=== PATIENT | female | born 1970 | race Caucasian/White ===

== ENCOUNTER 2016-10-17 19:29 | Inpatient (IN) | payer OTHER ==
[~2016-10-17] VITALS: Ht 165.1 cm; Wt 72.8 kg
[~2016-10-17 19:29] MED LIST: CITA20 PO; CLON.1 PO; IBUP800T23 PO; TRAZ100 PO
[2016-10-17 19:43] VITALS: BP 129/98; PULSE 111; RESP 20; TEMP 99.5; O2SAT 98
[2016-10-17 20:00] LABS: GLUCOSE,URINE 100 mg/dL (NEG); KETONE, URINE 15 mg/dL (NEG); NITRITE,URINE NEG (NEG); PH, URINE 6.5 (5.0-8.5)
[2016-10-17 20:02] LABS: BLOOD, URINE MOD (NEG)
[2016-10-17 20:03] LABS: URINE COLOR AMBER (YELLW/STRAW)
[2016-10-17 20:05] LABS: COMMENT (UR) CULT NOT INDICATED; CULTURE IF INDICATED CULT NOT INDICATED; SQUAMOUS EPITHELIAL CELL URINE 0-5 /hpf (0-5); WBC, URINE 0-2 /hpf (0-5)
[2016-10-17 20:06] VITALS: RESP 16; O2SAT 97
[2016-10-17] MEDS ORDERED: CLON0.1T PO (20:12)
[2016-10-17] MEDS ORDERED: CELE40TA PO (20:12)
[2016-10-17] MEDS ORDERED: TRAZ150T75 PO (20:12)
[2016-10-17] MEDS ORDERED: SODIUM CHLORIDE 0.9% FLUSH 5 ML FLUSH IVF PRN ×2 (20:45→21:30)
--- NOTE | 2016-10-17 20:51 | PD ---
HPI Chief Complaint: GI Complaint Time Seen by Provider: 20:43 Travel History International Travel<30 days: No Contact w/Intl Traveler<30days: No Traveled to known affect area: No History of Present Illness HPI The patient is a 45-year-old female that has had nausea and vomiting for one week. She does feel dehydrated. She also has noted today some dysuria. Her coworkers have noted that she has a yellow hue to her sclera. She has noted dark urines. She denies any fever but her temperature is 99.5 here. She does complain of right upper quadrant pain. She denies any recent foreign travel. She has IV drug abuse history but this was many years ago and she has not engaged in IV drug abuse in the last 4 months. She denies being around anybody hepatitis. Specifically, she has no history of alcohol or Tylenol abuse/ overdose. She denies taking any foreign-originated herbal medications. PFSH Past Medical History Depression: Yes (MAJOR DEPRESSIVE DISORDER) Cerebrovascular Accident: Yes Diminished Hearing: No Reproductive: Yes (PCOS) Tetanus Vaccination: > 5 Years Influenza Vaccination: No ?: Not Past Surgical History Genitourinary Surgery: Yes ("Bladder tacking") Hysterectomy: Yes Social History Alcohol Use: Yes (OCC) Tobacco Use: Yes (1 PPD) Substance Use: No Allergies-Medications (Allergen,Severity, Reaction): Coded Allergies: Tetracycline (Verified Allergy, Severe, Tongue swelling, 10/17/16) Topamax (Verified Adverse Reaction, Unknown, "Skin crawling", 10/17/16) Reported Meds & Prescriptions Reported Meds & Active Scripts Active Reported Celexa (Citalopram Hydrobromide) 40 Mg Tab 40 Mg PO DAILY Clonidine (Clonidine HCl) 0.1 Mg Tab 0.1 Mg PO HS Trazodone (Trazodone HCl) 150 Mg Tab 150 Mg PO HS Review of Systems Except as stated in HPI: all other systems reviewed are Neg Physical Exam Narrative GENERAL: The patient is alert, oriented 3 in moderate apparent distress with her right upper quadrant pain. Her vital signs show temperature 99.5, blood pressure of 129/98, heart rate of 111 but otherwise normal. SKIN: Warm and dry. HEAD: Atraumatic. Normocephalic. EYES: Pupils equal and round. There is bilateral scleral icterus. No injection or drainage. ENT: No nasal bleeding or discharge. Mucous membranes pink and moist. NECK: Trachea midline. No JVD. CARDIOVASCULAR: Regular rate and rhythm. No murmur appreciated. RESPIRATORY: No accessory muscle use. Clear to auscultation. Breath sounds equal bilaterally. GASTROINTESTINAL: Abdomen soft, with tenderness in the right upper quadrant to direct palpation, nondistended. Hepatic and splenic margins not palpable. Crain's sign is positive. No guarding or rebound is present. MUSCULOSKELETAL: No obvious deformities. No clubbing. No cyanosis. No edema. NEUROLOGICAL: Awake and alert. No obvious cranial nerve deficits. Motor grossly within normal limits. Normal speech. PSYCHIATRIC: Appropriate mood and affect; insight and judgment normal. Data Data Last Documented VS Vital Signs Date Time Temp Pulse Resp B/P Pulse Ox O2 Delivery O2 Flow Rate FiO2 10/17/16 22:53 18 10/17/16 22:25 98.6 86 117/63 96 Room Air Orders Urinalysis - C+S If Indicated (10/17/16 19:48) Complete Blood Count With Diff (10/17/16 20:43) Comprehensive Metabolic Panel (10/17/16 20:43) Lipase (10/17/16 20:43) Prothrombin Time / Inr (Pt) (10/17/16 20:43) Act Partial Throm Time (Ptt) (10/17/16 20:43) Iv Access Insert/Monitor (10/17/16 20:43) Ecg Monitoring (10/17/16 20:43) Oximetry (10/17/16 20:43) Sodium Chloride 0.9% Flush (Ns Flush) (10/17/16 20:45) Us Abdomen Gallbladder (10/17/16 ) Sodium Chloride 0.9% Flush (Ns Flush) (10/17/16 21:30) Ondansetron Inj (Zofran Inj) (10/17/16 22:15) Hydromorphone Pf Inj (Dilaudid Pf Inj) (10/17/16 22:15) Sodium Chlor 0.9% 1000 Ml Inj (Ns 1000 M (10/17/16 22:15) Hepatitis Profile (10/17/16 23:09) Labs Laboratory Tests Test 10/17/16 10/17/16 19:50 20:45 Urine Color SAUL Urine Turbidity CLEAR Urine pH 6.5 Urine Specific Black 1.025 Urine Protein 30 mg/dL Urine Glucose (UA) 100 mg/dL Urine Ketones 15 mg/dL Urine Occult Blood MOD Urine Nitrite NEG Urine Bilirubin LARGE Urine Leukocyte Esterase NEG Urine RBC 25-49 /hpf Urine WBC 0-2 /hpf Urine Squamous Epithelial 0-5 /hpf Cells Urine Bacteria NONE /hpf Microscopic Urinalysis Comment CULT NOT INDICATED White Blood Count 10.9 TH/MM3 Red Blood Count 5.37 MIL/MM3 Hemoglobin 14.2 GM/DL Hematocrit 42.8 % Mean Corpuscular Volume 79.8 FL Mean Corpuscular Hemoglobin 26.4 PG Mean Corpuscular Hemoglobin 33.1 % Concent Red Cell Distribution Width 15.9 % Platelet Count 178 TH/MM3 Mean Platelet Volume 9.5 FL Neutrophils (%) (Auto) 76.2 % Lymphocytes (%) (Auto) 11.4 % Monocytes (%) (Auto) 9.7 % Eosinophils (%) (Auto) 0.6 % Basophils (%) (Auto) 2.1 % Neutrophils # (Auto) 8.3 TH/MM3 Lymphocytes # (Auto) 1.2 TH/MM3 Monocytes # (Auto) 1.1 TH/MM3 Eosinophils # (Auto) 0.1 TH/MM3 Basophils # (Auto) 0.2 TH/MM3 CBC Comment DIFF FINAL Differential Comment Prothrombin Time 12.7 SEC Prothromb Time International 1.1 RATIO Ratio Activated Partial 31.6 SEC Thromboplast Time Sodium Level 138 MEQ/L Potassium Level 3.6 MEQ/L Chloride Level 103 MEQ/L Carbon Dioxide Level 26.2 MEQ/L Anion Gap 9 MEQ/L Blood Urea Nitrogen 6 MG/DL Creatinine 0.73 MG/DL Estimat Glomerular Filtration 86 ML/MIN Rate Random Glucose 105 MG/DL Calcium Level 8.4 MG/DL Total Bilirubin 9.2 MG/DL Aspartate Amino Transf 849 U/L (AST/SGOT) Alanine Aminotransferase 1400 U/L (ALT/SGPT) Alkaline Phosphatase 200 U/L Total Protein 7.5 GM/DL Albumin 3.3 GM/DL Lipase 77 U/L [facility] Medical Decision Making Medical Screen Exam Complete: Yes Emergency Medical Condition: Yes Medical Record Reviewed: Yes Interpretation(s) The urine shows saul color, clear turbidity, specific gravity 1.025, 30 protein , 100 glucose, 15 ketones, moderate blood with large bilirubin and 25-49 red cells and is otherwise normal and culture is not indicated. Differential Diagnosis Obstructive jaundice, hepatitis, electrolyte disorder, anemiahemolytic, urinary tract infection, jaundice from alcohol, Tylenol or other liver toxins, dehydration Narrative Course The patient probably has viral hepatitis. At this time her reason for her liver enzyme elevation is unknown. The patient is dehydrated and has trouble with by mouth intake at this time. Plan: I discussed the patient with Dr. Banda and Dr. Watts, the patient will be admitted to Dr. Banda with consultation to Dr. Watts. She will be hydrated. Physician Communication Physician Communication I discussed the patient with Drs. Banda and Mac. Diagnosis Primary Impression: Hepatitis Additional Impression: Dehydration, moderate Admitting Information Admitting Physician Requests: Admit Triston Varags MD Oct 17, 2016 20:51
[2016-10-17 21:05] LABS: AUTOMATED NEUTROPHIL # 8.3 TH/MM3 (1.8-7.7); BASOPHIL # 0.2 TH/MM3 (0-0.2); BASOPHIL % 2.1 % (0.0-2.0); EOSINOPHIL # 0.1 TH/MM3 (0-0.4); EOSINOPHIL % 0.6 % (0.0-4.0); HEMATOCRIT 42.8 % (35.0-46.0); LYMPH % 11.4 % (9.0-44.0); LYMPHOCYTE # 1.2 TH/MM3 (1.0-4.8); MEAN CELL VOLUME 79.8 FL (80.0-100.0); MEAN CORPUSCULAR HEMOGLOBIN 26.4 PG (27.0-34.0); MEAN CORPUSCULAR HGB CONC 33.1 % (32.0-36.0); MONO % 9.7 % (0.0-8.0); NEUT % 76.2 % (16.0-70.0); PLATELET COUNT 178 TH/MM3 (150-450); RED BLOOD COUNT 5.37 MIL/MM3 (4.00-5.30); RED CELL DISTRIBUTION WIDTH 15.9 % (11.6-17.2); WHITE BLOOD COUNT 10.9 TH/MM3 (4.0-11.0)
[2016-10-17 21:14] LABS: CHLORIDE 103 MEQ/L (98-107); POTASSIUM 3.6 MEQ/L (3.5-5.1); SODIUM (NA) 138 MEQ/L (136-145)
[2016-10-17 21:18] LABS: ANION GAP 9 MEQ/L (5-15); BICARBONATE 26.2 MEQ/L (21.0-32.0); BLOOD UREA NITROGEN 6 MG/DL (7-18); HEMO FLAGS DIFF FINAL
[2016-10-17 21:19] LABS: APTT (PATIENT) 31.6 SEC (24.3-30.1); INTERNATIONAL NORMALIZED RATIO 1.1 RATIO; PROTHROMBIN TIME - PATIENT 12.7 SEC (9.8-11.6)
[2016-10-17 21:21] LABS: AST (GOT) 849 U/L (15-37); GLOMERULAR FILTRATION RATE 86 ML/MIN (>89)
[2016-10-17 21:22] LABS: TOTAL BILIRUBIN ADULT 9.2 MG/DL (0.2-1.0)
[2016-10-17 21:23] LABS: ALKALINE PHOSPHATASE 200 U/L (45-117)
[2016-10-17 21:28] LABS: ALT (GPT) 1400 U/L (10-53)
[2016-10-17] MEDS ORDERED: ONDANSETRON HCL 4 MG/2 ML VIAL IV ONE (22:15)
[2016-10-17] MEDS ORDERED: HYDROmorphone HCL PF 1 MG/ML VIAL IVP ONE (22:15)
[2016-10-17] MEDS: SODIUM CHLOR 0.9% 1000 ML INJ 1,000 ML IV SCH ×2 (22:22→23:35)
[2016-10-17 22:25] VITALS: BP 117/63; PULSE 86; RESP 16; TEMP 98.6; O2SAT 96
--- NOTE | 2016-10-17 23:31 | RADHPO ---
EXAM DATE/TIME: 10/18/2016 03:47 [facility] COMPARISON: No previous studies available for comparison. INDICATIONS : Right upper quadrant pain. MEDICAL HISTORY : Hypertension. Cerebrovascular accident. Polycystic ovarian syndrome. Depression. SURGICAL HISTORY : Hysterectomy. Bladder tacking. Right knee surgery. Neck surgery with hardware. ENCOUNTER: Initial ACUITY: 3 days PAIN SCORE: 3/10 LOCATION: Right upper quadrant MEASUREMENTS: LIVER: 17.8 cm length COMMON DUCT: 5 mm RIGHT KIDNEY: 12.0 x 5.4 x 4.7 cm FINDINGS: LIVER: Normal echotexture without focal lesion or ductal dilatation. Hepatopedal flow is seen in the portal vein. COMMON DUCT: No intraluminal mass or stone visualized. GALLBLADDER: Contains no stones, demonstrates no wall thickening or pericholecystic fluid. PANCREAS: The visualized portions are within normal limits. RIGHT KIDNEY: No evidence of hydronephrosis, stone, or mass. CONCLUSION: 1. No gallstone seen. 2. Hepatomegaly without focal lesion. Enzo Espitia MD on October 17, 2016 at 23:28 Board Certified Radiologist. This report was verified electronically.
[2016-10-17 23:34] VITALS: BP 120/74; PULSE 88; RESP 18; O2SAT 96
[2016-10-18] VITALS (11 sets, daily range): BP systolic 102–126; BP diastolic 55–77; PULSE 60–84; RESP 12–19; TEMP 97.7–98.7; O2SAT 95–98
[2016-10-18] MEDS ORDERED: SODIUM CHLORIDE 0.9% FLUSH 5 ML FLUSH FLUSH PRN
[2016-10-18] MEDS: NS + KCL 20 MEQ INJ 1,000 ML IV SCH ×3 (01:11→20:19)
[2016-10-18] MEDS ORDERED: LORazepam 2 MG/ML VIAL IV ONE (01:15)
--- NOTE | 2016-10-18 03:04 | RADHPO ---
EXAM DATE/TIME: 10/18/2016 01:45 [facility] COMPARISON: US ABDOMEN - GALLBLADDER, October 18, 2016, 3:47. INDICATIONS : Abdominal pain. MEDICAL HISTORY : None. SURGICAL HISTORY : Fusion, cervical. Hysterectomy. Inguinal hernia repair. Bladder neck suspension surgery ENCOUNTER: Initial ACUITY: 1 day PAIN SCORE: 4/10 LOCATION: upper quadrant of abdomen TECHNIQUE: Multiplanar, multisequence magnetic resonance imaging of the abdomen was performed. High-resolution 3D dataset was utilized to reconstruct maximum-intensity projection (MIP) images. FINDINGS: INTRAHEPATIC BILE DUCTS: Within normal limits. No significant anatomical variant is present. EXTRAHEPATIC BILE DUCTS: The common bile duct measures 4 mm No stone or filling defect is identified. GALLBLADDER: No stones, wall thickening, or pericholecystic fluid. LIVER: There is a focal oval lesion in the posterior right lobe measuring 2.6 cm in oblique dimension charac terized by T1 and T2 prolongation. This cannot be further characterized on noncontrast study. PANCREAS: The main pancreatic duct is normal in size. There is no significant anatomical variant. Signal inte nsity is within normal limits. No mass is visualized on this non-contrast exam. OTHER: The remaining visualized structures demonstrate no acute abnormality on this non-contrast exam. CONCLUSION: 1. Normal dimension to the intra-and extrahepatic biliary system. No filling defects seen. 2. No filling defects the gallbladder. 3. 2.6 cm oval smooth margin lesion in the posterior upper right lobe of the liver near the perifery. This is incompletely evaluated on MRCP; differential considerations include hemangioma and cyst. Enzo Espitia MD on October 18, 2016 at 2:56 Board Certified Radiologist. This report was verified electronically.
[2016-10-18] MEDS: ONDANSETRON HCL 4 MG/2 ML VIAL IV PRN ×2 (03:29→22:38)
[2016-10-18] MEDS: MORPHINE SULFATE 4 MG/ML INJ IV PUSH PRN ×6 (03:35→22:38)
[2016-10-18 06:27] LABS: CHLORIDE 109 MEQ/L (98-107); POTASSIUM 3.6 MEQ/L (3.5-5.1); SODIUM (NA) 144 MEQ/L (136-145)
[2016-10-18 06:45] LABS: ALKALINE PHOSPHATASE 161 U/L (45-117); ALT (GPT) 1092 U/L (10-53); ANION GAP 7 MEQ/L (5-15); AST (GOT) 739 U/L (15-37); BICARBONATE 27.8 MEQ/L (21.0-32.0); BLOOD UREA NITROGEN 6 MG/DL (7-18); GLOMERULAR FILTRATION RATE 102 ML/MIN (>89); TOTAL BILIRUBIN ADULT 8.2 MG/DL (0.2-1.0)
[2016-10-18] MEDS: SODIUM CHLORIDE 0.9% FLUSH 5 ML FLUSH FLUSH SCH ×2 (08:09→20:20)
--- NOTE | 2016-10-18 08:33 | HHI.HP ---
HPI Service [facility] Hospitalists Primary Care Physician Dionna Estrada M.D. Admission Diagnosis hepatitis/dehydration Chief Complaint: n/v, abd pain Travel History International Travel<30 Days: No Contact w/Intl Traveler <30 Da: No Traveled to Known Affected Are: No History of Present Illness Pleasant 45-year-old female who is a smoker and has a distant history of IM drug abuse reports to the ER last evening for persistent abdominal pain and nausea. Her GI issues had been ongoing for approximately 1 week and she initially had vomiting as well but has not had vomiting in the last few days. She denies any recent foreign travel or Tylenol use. She denies drinking alcohol. Denies any illicit drugs except for occasional marijuana which she has not used in quite some time as well. He notes that 3 days ago she did take some pain in the liver detoxification Tea, but denies new medications or over- the-counter remedies otherwise. Does admit that she previously had problem with addiction to Dilaudid, but says she never used IV only IM. Her last use of this was reportedly in 2008. Patient has never had any liver problems before. ER evaluation noted for slightly jaundiced patient with significantly elevated liver enzymes and essentially negative right upper quadrant ultrasound. MRCP was also performed and demonstrated no obvious blockage. There was a 2.6 cm mass in the liver which was possible hemangioma or cyst but was incompletely evaluated on this study. Vision is still having some nausea this morning. Her abdominal pain is controlled with the IV morphine. Review of Systems Constitutional: COMPLAINS OF: Fatigue, Change in appetite, DENIES: Diaphoretic episodes, Fever, Weight gain, Weight loss, Chills, Dizziness, Night Sweats Eyes: DENIES: Blurred vision, Diplopia, Eye inflammation, Eye pain, Vision loss , Photosensitivity, Double Vision Ears, nose, mouth, throat: DENIES: Tinnitus, Hearing loss, Vertigo, Nasal discharge, Oral lesions, Throat pain, Hoarseness, Ear Pain, Running Nose, Epistaxis, Sinus Pain, Toothache, Odynophagia Respiratory: DENIES: Apneas, Cough, Snoring, Wheezing, Hemoptysis, Sputum production, Shortness of breath Cardiovascular: DENIES: Chest pain, Palpitations, Syncope, Dyspnea on Exertion , PND, Lower Extremity Edema, Orthopnea, Claudication Gastrointestinal: COMPLAINS OF: Abdominal pain, GERD, Nausea, Reflux, Vomiting , Anorexia Musculoskeletal: COMPLAINS OF: Joint pain, DENIES: Muscle aches, Stiffness, Joint Swelling, Back pain, Neck pain Integumentary: COMPLAINS OF: Abnormal pigmentation, DENIES: Pruritus, Rash, Nail changes, Breast masses, Breast skin changes, Nipple discharge Neurologic: DENIES: Abnormal gait, Headache, Localized weakness, Paresthesias, Seizures, Speech Problems, Tremor, Poor Balance Psychiatric: COMPLAINS OF: Anxiety Past Family Social History Past Medical History Depression Anxiety PCOD in the past Past Surgical History Cervical spine surgery Inguinal hernia repair at age 54 years old Bladder suspension Hysterectomy at age 34 for PCOD and to decrease her cancer risk. 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 She occasionally has smoked marijuana since that time. Physical Exam Vital Signs Vital Signs Date Time Temp Pulse Resp B/P Pulse Ox O2 Delivery O2 Flow Rate FiO2 10/18/16 04:00 62 18 107/65 97 10/18/16 03:23 78 18 96 10/18/16 03:15 98.4 68 17 112/77 98 10/18/16 03:00 60 10/18/16 02:47 82 18 122/72 96 Room Air 10/18/16 01:00 84 18 126/72 96 Room Air 10/17/16 23:34 88 18 120/74 96 Room Air 10/17/16 22:53 18 10/17/16 22:25 98.6 86 16 117/63 96 Room Air 10/17/16 20:06 16 97 Room Air 10/17/16 19:43 99.5 111 20 129/98 98 Physical Exam GENERAL: This is a well-nourished, well-developed patient, in mild distress or guarding abdominal pain. SKIN: No rashes, ecchymoses or lesions. Cool and dry. Slight jaundice. HEAD: Atraumatic. Normocephalic. No temporal or scalp tenderness. EYES: Pupils equal round and reactive. Extraocular motions intact. Mild scleral icterus. No injection or drainage. ENT: Nose without bleeding, purulent drainage or septal hematoma. Airway patent. Poor dentition. NECK: Trachea midline. No JVD or lymphadenopathy. Supple, nontender, no meningeal signs. CARDIOVASCULAR: Regular rate and rhythm without murmurs, gallops, or rubs. RESPIRATORY: Clear to auscultation. Breath sounds equal bilaterally. No wheezes , rales, or rhonchi. GASTROINTESTINAL: Abdomen soft, nondistended. Mild tenderness to palpation in right upper quadrant and epigastrium. No hepato-splenomegaly, or palpable masses. Positive Crain sign. Bowel sounds normoactive. No bruit. MUSCULOSKELETAL: Extremities without clubbing, cyanosis, or edema. No joint tenderness, effusion, or edema noted. No calf tenderness. NEUROLOGICAL: Awake and alert. Cranial nerves II through XII intact. Motor and sensory grossly within normal limits. Five out of 5 muscle strength in all muscle groups. Normal speech. Laboratory Laboratory Tests Test 10/17/16 10/17/16 10/18/16 19:50 20:45 05:55 Urine Color COLIN Urine Turbidity CLEAR Urine pH 6.5 Urine Specific Tracy 1.025 Urine Protein 30 Urine Glucose (UA) 100 Urine Ketones 15 Urine Occult Blood MOD Urine Nitrite NEG Urine Bilirubin LARGE Urine Leukocyte Esterase NEG Urine RBC 25-49 Urine WBC 0-2 Urine Squamous Epithelial 0-5 Cells Urine Bacteria NONE Microscopic Urinalysis Comment CULT NOT INDICATED White Blood Count 10.9 Red Blood Count 5.37 Hemoglobin 14.2 Hematocrit 42.8 Mean Corpuscular Volume 79.8 Mean Corpuscular Hemoglobin 26.4 Mean Corpuscular Hemoglobin 33.1 Concent Red Cell Distribution Width 15.9 Platelet Count 178 Mean Platelet Volume 9.5 Neutrophils (%) (Auto) 76.2 Lymphocytes (%) (Auto) 11.4 Monocytes (%) (Auto) 9.7 Eosinophils (%) (Auto) 0.6 Basophils (%) (Auto) 2.1 Neutrophils # (Auto) 8.3 Lymphocytes # (Auto) 1.2 Monocytes # (Auto) 1.1 Eosinophils # (Auto) 0.1 Basophils # (Auto) 0.2 CBC Comment DIFF FINAL Differential Comment Prothrombin Time 12.7 Prothromb Time International 1.1 Ratio Activated Partial 31.6 Thromboplast Time Sodium Level 138 144 Potassium Level 3.6 3.6 Chloride Level 103 109 Carbon Dioxide Level 26.2 27.8 Anion Gap 9 7 Blood Urea Nitrogen 6 6 Creatinine 0.73 0.63 Estimat Glomerular Filtration 86 102 Rate Random Glucose 105 75 Calcium Level 8.4 7.6 Total Bilirubin 9.2 8.2 Aspartate Amino Transf 849 739 (AST/SGOT) Alanine Aminotransferase 1400 1092 (ALT/SGPT) Alkaline Phosphatase 200 161 Total Protein 7.5 6.1 Albumin 3.3 2.7 Lipase 77 Result Diagram: 10/17/16204410/18/16 0555 Imaging Last 72 hours Impressions Cholangiopancreatography MRI 10/18/16 0000 Signed Impressions: Service Date/Time: Tuesday, October 18, 2016 01:45 - CONCLUSION: 1. Normal dimension to the intra-and extrahepatic biliary system. No filling defects seen. 2. No filling defects the gallbladder. 3. 2.6 cm oval smooth margin lesion in the posterior upper right lobe of the liver near the perifery. This is incompletely evaluated on MRCP; differential considerations include hemangioma and cyst. Enzo Espitia MD Gall Bladder Ultrasound 10/17/16 0000 Signed Impressions: Service Date/Time: Tuesday, October 18, 2016 03:47 - CONCLUSION: 1. No gallstone seen. 2. Hepatomegaly without focal lesion. Enzo Espitia MD Assessment and Plan Problem List: (1) Transaminitis Status: Acute Plan: Questionable etiology. Possible viral hepatitis. We'll have GI see the patient. It is noted that she took a liver detoxification agent possibly 3 days ago to see if it would help her symptoms. Enzymes improved somewhat this morning. We'll be cautious with opiate use given her history of addiction, but we'll need to control her pain. (2) Depression Status: Chronic Plan: Continue Celexa. (3) Anxiety Status: Chronic Plan: Continue Celexa. (4) Tobacco use Status: Chronic Plan: Probably discouraged. Provide NicoDerm. Code Status Full Discussed Condition With Patient Physician Certification 2 Midnight Certification Type: Admission for Inpatient Services Order for Inpatient Services The services are ordered in accordance with Medicare regulations or non- Medicare payer requirements, as applicable. In the case of services not specified as inpatient-only, they are appropriately provided as inpatient services in accordance with the 2-midnight benchmark. Estimated LOS (days): 3 days is the estimated time the patient will need to remain in the hospital, assuming treatment plan goals are met and no additional complications. Post-Hospital Plan: Home Problem Qualifiers (1) Depression: Sarbjit Banda PhD MD Oct 18, 2016 08:33
[2016-10-18] MEDS ORDERED: PNEUMOCOCCAL POLYVALENT INJ 25 MCG/0.5 ML SYR IM ONE (09:00)
[2016-10-18] MEDS ORDERED: INFLUENZA VIRUS VACCINE (QUADRIVALENT) 0.5 ML SYR IM ONE (09:00)
[2016-10-18] MEDS: CITALOPRAM HYDROBROMIDE 40 MG TAB PO SCH (09:31)
[2016-10-18] MEDS: NICOTINE 21 MG/24 HR PATCH TD SCH (09:32)
[2016-10-18 11:19] LABS: BETA HCG QUANT 2 MIU/ML (0-5)
[2016-10-18 11:36] LABS: AMPHETAMINE, URINE NEG (NEG); COCAINE, URINE NEG (NEG)
[2016-10-18 11:40] LABS: BARBITURATES, URINE NEG (NEG)
[2016-10-18 11:47] LABS: TRANSFERRIN IRON PROFILE 222 MG/DL (200-360)
[2016-10-18 12:27] LABS: ACETAMINOPHEN LESS THAN 2.0 MCG/ML (10.0-30.0)
--- NOTE | 2016-10-18 13:48 | MB ---
cc: KRIS DHILLON M.D., [place] DATE OF CONSULTATION: 10/18/2016. REASON FOR CONSULTATION: Nausea, vomiting, right upper quadrant pain, elevated liver function tests, jaundice. PATIENT OF: Dr. Sarbjit Banda. HISTORY OF PRESENT ILLNESS: Ms. Montes is a 45-year-old lady who says for a couple of days she was noticing some yellowness in her eyes for which she was recommended an herbal tea for liver detoxification from her friends. She says she tried the tea about three days ago. She basically presented when she started having nausea, vomiting and abdominal pain. She denies any problems with her liver previously. Denies any GI-related symptoms in the past. She does work in a [email or web address] and states she comes in contact with a lot of travellers. REVIEW OF SYSTEMS: Currently she is icteric but no abdominal pain. No nausea or vomiting reported. PAST MEDICAL HISTORY: 1. Depression. 2. Anxiety disorder. 3. PCOD in the past. PAST SURGICAL HISTORY: 1. Spinal surgery. 2. Bladder suspension. 3. Hysterectomy. MEDICATIONS ON ADMISSION: 1. Celexa. 2. Trazodone. 3. Clonidine. ALLERGIES: 1. TETRACYCLINE. 2. TOPAMAX. FAMILY HISTORY: Breast cancer. There is family history of gallbladder disease. SOCIAL HISTORY: Lives alone. Denies alcohol or any illicit drug use recently. She is a smoker. Previous history of drug addiction reportedly clean since 2008. PHYSICAL EXAMINATION: GENERAL: The physical exam reveals a well-nourished lady in no apparent distress. VITAL SIGNS: Stable. HEAD AND NECK: Anicteric sclerae. CHEST: Bilateral air entry. ABDOMEN: Abdomen is soft, nontender. No hepatosplenomegaly. Bowel sounds are present. 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 RECTAL: Deferred at this time. LABORATORY STUDIES: Her labs reveal total bilirubin 8.2, alkaline phosphatase 161, ALT 1092, ALT 79. INR 1.1. Serologies and immunologies are pending. IMPRESSION: Elevated liver function test with nausea and vomiting. RECOMMENDATIONS: 1. Would recommend drug screen. 2. Would recommend alcohol level. 3. Would recommend acetaminophen levels. 4. Ultrasound and MRCP are negative for stones but the patient is convinced she has gallbladder disease. Given her symptoms, I am recommending a HIDA scan. 5. Serologies and liver workup are awaited. 6. If all this normal, would recommend an endoscopy. 7. Continue to monitor liver function tests. These seem to be improving. Thank you for this referral. MD FANNY Juarez/DARÍO /10:49 AM /1:42 PM
[2016-10-18] MEDS: cloNIDine HCL 0.1 MG TAB PO SCH (20:19)
[2016-10-18] MEDS: traZODone HCL 50 MG TAB PO SCH (20:20)
[2016-10-19] VITALS (8 sets, daily range): BP systolic 92–117; BP diastolic 58–74; PULSE 64–74; RESP 12–21; TEMP 97.2–97.9; O2SAT 95–96
[2016-10-19] MEDS: MORPHINE SULFATE 4 MG/ML INJ IV PUSH PRN ×2 (03:01→16:54)
[2016-10-19 06:02] LABS: CHLORIDE 111 MEQ/L (98-107); POTASSIUM 4.1 MEQ/L (3.5-5.1); SODIUM (NA) 144 MEQ/L (136-145)
[2016-10-19 06:07] LABS: ANION GAP 8 MEQ/L (5-15); BICARBONATE 24.8 MEQ/L (21.0-32.0); BLOOD UREA NITROGEN 11 MG/DL (7-18)
[2016-10-19 06:10] LABS: AST (GOT) 826 U/L (15-37); GLOMERULAR FILTRATION RATE 104 ML/MIN (>89)
[2016-10-19 06:13] LABS: ALKALINE PHOSPHATASE 164 U/L (45-117)
[2016-10-19 06:18] LABS: ALT (GPT) 1065 U/L (10-53)
--- NOTE | 2016-10-19 07:34 | HHI.PR ---
Subjective Remarks Still with some nausea and epigastric pain. Overall feels about the same. I reviewed upcoming HIDA scan and most recent lab results with the patient. Objective Vitals Vital Signs Date Time Temp Pulse Resp B/P Pulse Ox O2 Delivery O2 Flow Rate FiO2 10/19/16 06:47 97.7 68 16 105/65 95 10/19/16 04:00 97.6 66 12 103/62 95 10/19/16 00:39 97.9 64 21 106/58 95 10/18/16 20:00 70 10/18/16 19:49 98.2 70 18 125/76 95 10/18/16 16:20 97.7 77 13 126/74 95 10/18/16 12:51 98.7 102/55 10/18/16 12:00 70 12 97 10/18/16 08:00 78 19 97 10/18/16 08:00 72 10/18/16 08:00 98.1 64 16 110/70 10/18/16 10/18/16 10/19/16 15:00 23:00 07:00 Intake Total 820 ml 778 ml 737 ml Output Total 0 ml 0 ml Balance 820 ml 778 ml 737 ml IV Total 820 ml 778 ml 737 ml Output Stool Total 0 ml 0 ml # Voids 2 3 3 # Bowel Movements 0 GENERAL: Awake and alert, no acute distress, cooperative with exam. SKIN: Warm and dry. Minimal jaundice upper torso. HEAD: Normocephalic. EYES: Minimal scleral icterus. No injection or drainage. NECK: Supple, trachea midline. No JVD or lymphadenopathy. CARDIOVASCULAR: Regular rate and rhythm without murmurs, gallops, or rubs. RESPIRATORY: Breath sounds equal bilaterally. No accessory muscle use. GASTROINTESTINAL: Abdomen soft, nondistended. Slight tenderness to palpation in the epigastrium and right upper quadrant. No rebound. Decreased voluntary guarding compared to yesterday. Bowel sounds normal. MUSCULOSKELETAL: No cyanosis, or edema. BACK: No CVA tenderness. Result Diagram: 10/17/16204410/19/16 0523 Imaging Last 72 hours Impressions Cholangiopancreatography MRI 10/18/16 0000 Signed Impressions: Service Date/Time: Tuesday, October 18, 2016 01:45 - CONCLUSION: 1. Normal dimension to the intra-and extrahepatic biliary system. No filling defects seen. 2. No filling defects the gallbladder. 3. 2.6 cm oval smooth margin lesion in the posterior upper right lobe of the liver near the perifery. This is incompletely evaluated on MRCP; differential considerations include hemangioma and cyst. Enzo Espitia MD Gall Bladder Ultrasound 10/17/16 0000 Signed Impressions: Service Date/Time: Tuesday, October 18, 2016 03:47 - CONCLUSION: 1. No gallstone seen. 2. Hepatomegaly without focal lesion. Enzo Espitia MD Urinary Catheter: No Vascular Central Line Catheter: No A/P Problem List: (1) Transaminitis Status: Acute Plan: Questionable etiology. Possible viral versus chemical hepatitis. We'll have GI see the patient. It is noted that she took a liver detoxification agent possibly 3 days ago to see if it would help her symptoms. We'll be cautious with opiate use given her history of addiction, but we'll need to control her pain. I had a discussion with her regarding opiate use this morning. (2) Depression Status: Chronic Plan: Continue Celexa. (3) Anxiety Status: Chronic Plan: Continue Celexa. (4) Tobacco use Status: Chronic Plan: Smoking discouraged. Provide NicoDerm. Discharge Planning Hopefully discharge in 1-2 days Problem Qualifiers (1) Depression: Sarbjit Banda PhD MD Oct 19, 2016 07:34
[2016-10-19] MEDS ORDERED: KETOROLAC TROMETHAMINE 30 MG/ML (IVP) VIAL IV PUSH ONE (07:45)
[2016-10-19] MEDS: NS + KCL 20 MEQ INJ 1,000 ML IV SCH ×3 (08:17→20:07)
[2016-10-19] MEDS: NICOTINE 21 MG/24 HR PATCH TD SCH (08:18)
[2016-10-19] MEDS: CITALOPRAM HYDROBROMIDE 40 MG TAB PO SCH (08:18)
[2016-10-19] MEDS: SODIUM CHLORIDE 0.9% FLUSH 5 ML FLUSH FLUSH SCH ×2 (08:18→21:00)
--- NOTE | 2016-10-19 15:25 | RADHPO ---
EXAM DATE/TIME: 10/19/2016 12:53 This report includes an Addendum and supersedes previous reports for this exam. [facility] COMPARISON: No previous studies available for comparison. INDICATIONS : Abdominal pain with nausea and vomiting. Jaundice. DOSE: 4.3 mCi Tc99m Mebrofenin IV MEDICAL HISTORY : Stroke. Smoker. SURGICAL HISTORY : Hysterectomy. ENCOUNTER: Initial ACUITY: 3 days PAIN SCALE: 3/10 LOCATION: Right upper quadrant TECHNIQUE: Following the intravenous administration of radiotracer, dynamic sequential images were performed wit h continuous acquisition. FINDINGS: There is poor tracer uptake consistent with vascular disease and no evidence for obstruction. CONCLUSION: Hepatocellular disease , no evidence for obstruction. Pierre Walker MD FACR on October 19, 2016 at 15:22 Board Certified Radiologist. This report was verified electronically. ADDENDUM: COMPARISON: US ABDOMEN - GALLBLADDER, October 18, 2016, 3:47. MRCP W/O CONTRAST, October 18 7, 1:45. Delayed anterior and lateral views of the abdomen were obtained and there is faint activity overlying the liver which may represent gallbladder activity. There is some retained activity within the liver and there is also activity throughout the colon. IMPRESSION: After review of the delayed images, the initial exam, and all the prior studies these fin dings are suggestive of severe hepatocellular dysfunction. Lavell Russo MD on October 20, 2016 at 9:11 Board Certified Radiologist. This report was verified electronically.
--- NOTE | 2016-10-19 20:22 | HHI.GIFU ---
GI Follow-up Note Consult Follow-up Subjective: Patient laying in bed comfortably, no new complaints except icterus and epigastric pain Objective: PHYSICAL EXAMINATION: Vitals signs stable No fever HEENT: Pupils round and reactive to light; normocephalic; atraumatic; no jaundice. Throat is clear. NECK: Neck is supple, no JVD, no lymphadenopathy. CHEST: Chest is clear to auscultation and percussion. CARDIAC: Regular rate and rhythm with no murmur gallop or rubs. ABDOMEN: Soft, nondistended, nontender; no hepatosplenomegaly; bowel sounds are present in all four quadrants. EXTREMITIES: No clubbing, cyanosis, or edema. SKIN: Normal; no rash; no jaundice. [employer]: No focal deficits; alert and oriented times three. Available Data (labs, X- Rays, Procedues) : Last Impressions Hepatobiliary Scan Nuclear Medicine 10/19/16 0000 Signed Impressions: Service Date/Time: Wednesday, October 19, 2016 12:53 - CONCLUSION: Hepatocellular disease , no evidence for obstruction. Pierre Walker MD FACR Cholangiopancreatography MRI 10/18/16 0000 Signed Impressions: Service Date/Time: Tuesday, October 18, 2016 01:45 - CONCLUSION: 1. Normal dimension to the intra-and extrahepatic biliary system. No filling defects seen. 2. No filling defects the gallbladder. 3. 2.6 cm oval smooth margin lesion in the posterior upper right lobe of the liver near the perifery. This is incompletely evaluated on MRCP; differential considerations include hemangioma and cyst. Enzo Espitia MD Gall Bladder Ultrasound 10/17/16 0000 Signed Impressions: Service Date/Time: Tuesday, October 18, 2016 03:47 - CONCLUSION: 1. No gallstone seen. 2. Hepatomegaly without focal lesion. Enzo Espitia MD Laboratory Tests Test 10/17/16 10/17/16 10/18/16 10/18/16 20:45 23:22 05:55 11:00 White Blood Count 10.9 TH/MM3 Red Blood Count 5.37 MIL/MM3 Hemoglobin 14.2 GM/DL Hematocrit 42.8 % Mean Corpuscular Volume 79.8 FL Mean Corpuscular Hemoglobin 26.4 PG Mean Corpuscular Hemoglobin 33.1 % Concent Red Cell Distribution Width 15.9 % Platelet Count 178 TH/MM3 Mean Platelet Volume 9.5 FL Neutrophils (%) (Auto) 76.2 % Lymphocytes (%) (Auto) 11.4 % Monocytes (%) (Auto) 9.7 % Eosinophils (%) (Auto) 0.6 % Basophils (%) (Auto) 2.1 % Neutrophils # (Auto) 8.3 TH/MM3 Lymphocytes # (Auto) 1.2 TH/MM3 Monocytes # (Auto) 1.1 TH/MM3 Eosinophils # (Auto) 0.1 TH/MM3 Basophils # (Auto) 0.2 TH/MM3 CBC Comment DIFF FINAL Differential Comment Prothrombin Time 12.7 SEC Prothromb Time International 1.1 RATIO Ratio Activated Partial 31.6 SEC Thromboplast Time Sodium Level 138 MEQ/L 144 MEQ/L Potassium Level 3.6 MEQ/L 3.6 MEQ/L Chloride Level 103 MEQ/L 109 MEQ/L Carbon Dioxide Level 26.2 MEQ/L 27.8 MEQ/L Anion Gap 9 MEQ/L 7 MEQ/L Blood Urea Nitrogen 6 MG/DL 6 MG/DL Creatinine 0.73 MG/DL 0.63 MG/DL Estimat Glomerular Filtration 86 ML/MIN 102 ML/MIN Rate Random Glucose 105 MG/DL 75 MG/DL Calcium Level 8.4 MG/DL 7.6 MG/DL Total Bilirubin 9.2 MG/DL 8.2 MG/DL Aspartate Amino Transf 849 U/L 739 U/L (AST/SGOT) Alanine Aminotransferase 1400 U/L 1092 U/L (ALT/SGPT) Alkaline Phosphatase 200 U/L 161 U/L Total Protein 7.5 GM/DL 6.1 GM/DL Albumin 3.3 GM/DL 2.7 GM/DL Lipase 77 U/L Hepatitis A IgM Antibody NEGATIVE Hepatitis B Surface Antigen NEGATIVE Hepatitis B Core IgM Antibody NEGATIVE Hepatitis C Antibody REACTIVE Iron Level 86 MCG/DL Total Iron Binding Capacity 311 MCG/DL Percent Iron Saturation 27.7 % Human Chorionic Gonadotropin, 2 MIU/ML Quant Acetaminophen Level LESS THAN 2.0 MCG/ML Ethyl Alcohol Level LESS THAN 3 MG/DL Anti-Nuclear Antibody Screen NEG Urine Opiates Screen POS Urine Barbiturates Screen NEG Urine Amphetamines Screen NEG Urine Benzodiazepines Screen POS Urine Cocaine Screen NEG Urine Cannabinoids Screen NEG Test 10/19/16 05:23 Sodium Level 144 MEQ/L Potassium Level 4.1 MEQ/L Chloride Level 111 MEQ/L Carbon Dioxide Level 24.8 MEQ/L Anion Gap 8 MEQ/L Blood Urea Nitrogen 11 MG/DL Creatinine 0.62 MG/DL Estimat Glomerular Filtration 104 ML/MIN Rate Random Glucose 59 MG/DL Calcium Level 7.5 MG/DL Total Bilirubin 8.0 MG/DL Aspartate Amino Transf 826 U/L (AST/SGOT) Alanine Aminotransferase 1065 U/L (ALT/SGPT) Alkaline Phosphatase 164 U/L Total Protein 6.0 GM/DL Albumin 2.5 GM/DL Allergies Coded Allergies Type Severity Reaction Last Updated Verified Tetracycline Allergy Severe Tongue swelling 10/17/16 Yes Topamax Adverse Reaction Unknown "Skin crawling" 10/17/16 Yes Active Scripts Medications Dose Route/Sig Days Date Category Celexa (Citalopram Hydrobromide) 40 Mg Tab 40 Mg PO DAILY 10/17/16 Reported Clonidine (Clonidine HCl) 0.1 Mg Tab 0.1 Mg PO HS 10/17/16 Reported Trazodone (Trazodone HCl) 150 Mg Tab 150 Mg PO HS 10/17/16 Reported ASSESSMENT/PLAN: seen and examined, still with abdominal pain ant icterus. HIDA consistent with hepatocellular disease. NO obstruction. HEP C +ve. Drug screen + ve for benzos and narcotics. Monitor labs. May need liver biopsy if not improved in the next few days. It was a pleasure seeing Mike Montes. Thank you for this consult. Entered by: Jose Elias Adams MD Oct 19, 2016 20:22
[2016-10-19] MEDS ORDERED: traMADol HCL 50 MG TAB PO PRN (22:15)
[2016-10-19] MEDS: cloNIDine HCL 0.1 MG TAB PO SCH (22:26)
[2016-10-19] MEDS: traZODone HCL 50 MG TAB PO SCH (22:26)
[2016-10-20] VITALS: BP 107/71; PULSE 67; RESP 16; TEMP 97.9; O2SAT 98
[2016-10-20 04:00] VITALS: BP 123/72; PULSE 56; RESP 18; TEMP 96.9; O2SAT 98
[2016-10-20] MEDS: MORPHINE SULFATE 4 MG/ML INJ IV PUSH PRN (05:18)
[2016-10-20] MEDS: NS + KCL 20 MEQ INJ 1,000 ML IV SCH (05:18)
[2016-10-20 06:50] LABS: CHLORIDE 111 MEQ/L (98-107); POTASSIUM 4.4 MEQ/L (3.5-5.1); SODIUM (NA) 145 MEQ/L (136-145)
[2016-10-20 06:57] LABS: ANION GAP 8 MEQ/L (5-15); BICARBONATE 26.5 MEQ/L (21.0-32.0); BLOOD UREA NITROGEN 11 MG/DL (7-18)
[2016-10-20 06:59] LABS: ALT (GPT) 912 U/L (10-53); AST (GOT) 612 U/L (15-37)
[2016-10-20 07:00] LABS: GLOMERULAR FILTRATION RATE 112 ML/MIN (>89)
[2016-10-20 07:01] LABS: TOTAL BILIRUBIN ADULT 6.1 MG/DL (0.2-1.0)
[2016-10-20 07:02] LABS: ALKALINE PHOSPHATASE 150 U/L (45-117)
--- NOTE | 2016-10-20 07:56 | HHI.PR ---
Subjective Remarks Gradually improving. Tolerating oral intake. Abdominal pain decreased. No nausea vomiting. Objective Vitals Vital Signs Date Time Temp Pulse Resp B/P Pulse Ox O2 Delivery O2 Flow Rate FiO2 10/20/16 04:00 96.9 56 18 123/72 98 10/20/16 00:00 97.9 67 16 107/71 98 10/19/16 21:00 72 10/19/16 20:00 97.9 70 20 117/74 96 10/19/16 16:59 20 10/19/16 16:00 97.2 66 18 108/62 96 10/19/16 12:00 97.7 74 18 92/65 95 10/19/16 08:00 69 10/19/16 10/19/16 10/20/16 15:00 23:00 07:00 Intake Total 0 ml 1380 ml Balance 0 ml 1380 ml Intake Oral 0 ml 180 ml IV Total 1200 ml # Voids 1 0 # Bowel Movements 0 GENERAL: Awake and alert, no acute distress, cooperative with exam. SKIN: Warm and dry. HEAD: Normocephalic. EYES: Minimal scleral icterus. No injection or drainage. NECK: Supple, trachea midline. No JVD or lymphadenopathy. CARDIOVASCULAR: Regular rate and rhythm without murmurs, gallops, or rubs. RESPIRATORY: Breath sounds equal bilaterally. No accessory muscle use. GASTROINTESTINAL: Abdomen soft, nondistended. No right upper quadrant tenderness today. No rebound. Bowel sounds normal. MUSCULOSKELETAL: No cyanosis, or edema. BACK: No CVA tenderness. Result Diagram: 10/17/165 10/20/16 0555 Imaging Last 72 hours Impressions Cholangiopancreatography MRI 10/18/16 0000 Signed Impressions: Service Date/Time: Tuesday, October 18, 2016 01:45 - CONCLUSION: 1. Normal dimension to the intra-and extrahepatic biliary system. No filling defects seen. 2. No filling defects the gallbladder. 3. 2.6 cm oval smooth margin lesion in the posterior upper right lobe of the liver near the perifery. This is incompletely evaluated on MRCP; differential considerations include hemangioma and cyst. Enzo Espitia MD Gall Bladder Ultrasound 10/17/16 0000 Signed Impressions: Service Date/Time: Tuesday, October 18, 2016 03:47 - CONCLUSION: 1. No gallstone seen. 2. Hepatomegaly without focal lesion. Enzo Espitia MD Urinary Catheter: No Vascular Central Line Catheter: No A/P Problem List: (1) Transaminitis Status: Acute Plan: Likely associated with viral hepatitis given that her hep C antibodies positive. GI is following. HIDA scan noted. Hep C quantitative RNA and genotype pending. Transaminases improving. It is noted that she took a liver detoxification agent possibly 3 days ago to see if it would help her symptoms. We'll be cautious with opiate use given her history of addiction, but we'll need to control her pain. I had a discussion with her regarding opiate use October 19. (2) Depression Status: Chronic Plan: Continue Celexa. (3) Anxiety Status: Chronic Plan: Continue Celexa. (4) Tobacco use Status: Chronic Plan: Smoking discouraged. Provide NicoDerm. Discharge Planning Hopefully discharge in 1-2 days Problem Qualifiers (1) Depression: Sarbjit Banda PhD Oct 20, 2016 07:56
[2016-10-20 08:00] VITALS: BP 125/85; PULSE 82; RESP 19; TEMP 97.7; O2SAT 97
[2016-10-20] MEDS: NICOTINE 21 MG/24 HR PATCH TD SCH (09:01)
[2016-10-20] MEDS: CITALOPRAM HYDROBROMIDE 40 MG TAB PO SCH (09:03)
[2016-10-20] MEDS: SODIUM CHLORIDE 0.9% FLUSH 5 ML FLUSH FLUSH SCH (09:03)
[2016-10-20 12:00] VITALS: BP 130/88; PULSE 79; RESP 18; TEMP 97.6; O2SAT 96
[2016-10-20 12:08] VITALS: PULSE 54
[2016-10-20] MEDS ORDERED: NICO21DI2 TD (14:29)
[2016-10-20] MEDS ORDERED: TRAZ50TA12 PO (14:29)
[2016-10-20] MEDS ORDERED: ULTR50TA5 PO (14:29)
--- NOTE | 2016-10-20 14:34 | HHI.DS ---
Discharge Summary Admission Date Oct 17, 2016 at 23:43 Discharge Date: Oct 20, 2016 Admitting Diagnosis hepatitis/dehydration (1) Transaminitis Diagnosis: Principal (2) Depression Diagnosis: Secondary (3) Anxiety Diagnosis: Secondary (4) Tobacco use Diagnosis: Secondary Consultants Dr Watts- GI Brief History Pleasant 45-year-old female who is a smoker and has a distant history of IM drug abuse reports to the ER last evening for persistent abdominal pain and nausea. Her GI issues had been ongoing for approximately 1 week and she initially had vomiting as well but has not had vomiting in the last few days. She denies any recent foreign travel or Tylenol use. She denies drinking alcohol. Denies any illicit drugs except for occasional marijuana which she has not used in quite some time as well. He notes that 3 days ago she did take some pain in the liver detoxification Tea, but denies new medications or over- the-counter remedies otherwise. Does admit that she previously had problem with addiction to Dilaudid, but says she never used IV only IM. Her last use of this was reportedly in 2008. Patient has never had any liver problems before. ER evaluation noted for slightly jaundiced patient with significantly elevated liver enzymes and essentially negative right upper quadrant ultrasound. MRCP was also performed and demonstrated no obvious blockage. There was a 2.6 cm mass in the liver which was possible hemangioma or cyst but was incompletely evaluated on this study. Vision is still having some nausea this morning. Her abdominal pain is controlled with the IV morphine. CBC/BMP: 10/17/16204410/20/16 0555 Significant Findings Laboratory Tests Test 10/17/16 10/17/16 10/17/16 10/18/16 19:50 20:45 23:22 05:55 Urine Color COLIN (YELLW/STRAW) Urine Protein 30 mg/dL (NEG-TRACE) Urine Glucose (UA) 100 mg/dL (NEG) Urine Ketones 15 mg/dL (NEG) Urine Occult Blood MOD (NEG) Urine Bilirubin LARGE (NEG) Urine RBC 25-49 /hpf (0-3) Red Blood Count 5.37 MIL/MM3 (4.00-5.30) Mean Corpuscular Volume 79.8 FL (80.0-100.0) Mean Corpuscular Hemoglobin 26.4 PG (27.0-34.0) Neutrophils (%) (Auto) 76.2 % (16.0-70.0) Monocytes (%) (Auto) 9.7 % (0.0-8.0) Basophils (%) (Auto) 2.1 % (0.0-2.0) Neutrophils # (Auto) 8.3 TH/MM3 (1.8-7.7) Monocytes # (Auto) 1.1 TH/MM3 (0-0.9) Prothrombin Time 12.7 SEC (9.8-11.6) Activated Partial 31.6 SEC Thromboplast Time (24.3-30.1) Blood Urea Nitrogen 6 MG/DL (7-18) 6 MG/DL (7-18) Estimat Glomerular Filtration 86 ML/MIN (>89) Rate Calcium Level 8.4 MG/DL 7.6 MG/DL (8.5-10.1) (8.5-10.1) Total Bilirubin 9.2 MG/DL 8.2 MG/DL (0.2-1.0) (0.2-1.0) Aspartate Amino Transf 849 U/L (15-37) 739 U/L (15-37) (AST/SGOT) Alanine Aminotransferase 1400 U/L 1092 U/L (ALT/SGPT) (10-53) (10-53) Alkaline Phosphatase 200 U/L 161 U/L (45-117) (45-117) Albumin 3.3 GM/DL 2.7 GM/DL (3.4-5.0) (3.4-5.0) Hepatitis C Antibody REACTIVE (NEGATIVE) Chloride Level 109 MEQ/L (98-107) Total Protein 6.1 GM/DL (6.4-8.2) Acetaminophen Level LESS THAN 2.0 MCG/ML (10.0-30.0) Test 10/18/16 10/19/16 10/20/16 11:00 05:23 05:55 Urine Opiates Screen POS (NEG) Urine Benzodiazepines Screen POS (NEG) Chloride Level 111 MEQ/L 111 MEQ/L (98-107) (98-107) Random Glucose 59 MG/DL (74-106) Calcium Level 7.5 MG/DL 7.6 MG/DL (8.5-10.1) (8.5-10.1) Total Bilirubin 8.0 MG/DL 6.1 MG/DL (0.2-1.0) (0.2-1.0) Aspartate Amino Transf 826 U/L (15-37) 612 U/L (15-37) (AST/SGOT) Alanine Aminotransferase 1065 U/L 912 U/L (10-53) (ALT/SGPT) (10-53) Alkaline Phosphatase 164 U/L 150 U/L (45-117) (45-117) Total Protein 6.0 GM/DL 5.8 GM/DL (6.4-8.2) (6.4-8.2) Albumin 2.5 GM/DL 2.4 GM/DL (3.4-5.0) (3.4-5.0) Imaging Last 72 hours Impressions Hepatobiliary Scan Nuclear Medicine 10/19/16 0000 Signed Impressions: Service Date/Time: Wednesday, October 19, 2016 12:53 - CONCLUSION: Hepatocellular disease , no evidence for obstruction. Pierre Walker MD FACRADDENDUM: COMPARISON: US ABDOMEN - GALLBLADDER, October 18, 2016, 3:47. MRCP W/O CONTRAST, October 18, 2016, 1:45. Delayed anterior and lateral views of the abdomen were obtained and there is faint activity overlying the liver which may represent gallbladder activity. There is some retained activity within the liver and there is also activity throughout the colon. IMPRESSION: After review of the delayed images, the initial exam, and all the prior studies these findings are suggestive of severe hepatocellular dysfunction. Lavell Russo MD Cholangiopancreatography MRI 10/18/16 0000 Signed Impressions: Service Date/Time: Tuesday, October 18, 2016 01:45 - CONCLUSION: 1. Normal dimension to the intra-and extrahepatic biliary system. No filling defects seen. 2. No filling defects the gallbladder. 3. 2.6 cm oval smooth margin lesion in the posterior upper right lobe of the liver near the perifery. This is incompletely evaluated on MRCP; differential considerations include hemangioma and cyst. Enzo Espitia MD Hospital Course Pt admitted for abd pain, n/v, elevated LFTs. Etiology of LFT elevation unclear , but possibly a/w toxin vs viral hepatitis. She was noted to have Hep C Ab +. MRCP and HIDA negative for any obstructive process but hepatocellular disfunction likely per scans. LFTs were slowly improving and pt clinically much improved by hosp day #3. May need liver bx in future per GI. Pt Condition on Discharge: Good Discharge Disposition: Discharge Home Discharge Instructions DIET: Follow Instructions for: As Tolerated, No Restrictions Additional Diet Instructions: start with low fat and advance as tolerated Activities you can perform: Regular-No Restrictions Follow up Referrals: Gastroenterology PCP Follow-up New Orders: COMP MET PROF (CMP) - 2-3 Days New Medications: Nicotine Patch (Nicotine Patch) 21 Mg/24 Hr Patch 1 PATCH TD DAILY smoking cessation #30 PATCH Tramadol (Ultram) 50 Mg Tab 50 MG PO Q6H PRN pain level 3-10 #20 TAB Trazodone (Trazodone) 50 Mg Tab 50 MG PO HS Insomnia #30 TAB Continued Medications: Citalopram (Celexa) 40 Mg Tab 40 MG PO DAILY Control Depression #30 Ref 0 TAB Clonidine (Clonidine) 0.1 Mg Tab 0.1 MG PO HS Blood Pressure Management #60 Ref 0 TAB Discontinued Medications: Trazodone (Trazodone) 150 Mg Tab 150 MG PO HS Control Depression #30 Ref 0 TAB Sarbjit Banda PhD Oct 20, 2016 14:34
[2016-10-22 15:54] LABS: HCV RNA PCR IU/ML 10700000 IU/mL (()); HCV RNA PCR LOGIU/ML 7.03 (())
[2016-10-22 19:54] LABS: HEPATITIS C RNA GENOTYPE GENOTYPE 2b (())
== END 2016-10-20 15:27 | disposition home or self-care (01) | DRG 443 ==
LOC: PHEFT 19:29 → PHEDA 23:43 → PHICU 10-18 02:55 → PH3B 10-19 06:28
PROVIDERS: ADMIT Family Medicine; ATTEND Family Medicine
DX: B19.20 Unspecified viral hepatitis C without hepatic coma (principal); E86.0 Dehydration; F32.9 Major depressive disorder, single episode, unspecified; F41.9 Anxiety disorder, unspecified; F17.210 Nicotine dependence, cigarettes, uncomplicated; Z88.1 Allergy status to other antibiotic agents; Z88.8 Allergy status to other drugs, medicaments and biological substances
CPT/HCPCS: 74181; 76377; 76705; 78226; 80053; 80074; 80307; 80320; 80329; 81001; 83540; 83550; 83690; 84702; 85025; 85610; 85730; 86038; 87522; 87902; 90471; 90686; 90732; 96374; 96375; A9537; G0008; G0009; G0480; J1170; J1885; J2060; J2270; J2405; J3480; J7030; Q2038